=== PATIENT | female | born 1950 | race Caucasian/White ===

== ENCOUNTER 2016-09-23 18:57 | Inpatient (IN) | payer OTHER, MEDICAID ==
[~2016-09-23] VITALS: Ht 154.9 cm; Wt 82.0 kg
[~2016-09-23 18:57] MED LIST: COZ25 PO; ECO81 PO; LEXAPRO10 MG PO; LOT10; METOPROLOL TART25 M1 PO; NORCO1 TA2 PO; TEN25; ZOC20 PO
[2016-09-24] MEDS ORDERED: GOOD SENSE OMEP20 MG PO
[2016-09-24 01:09] VITALS: BP 116/64
[2016-09-24 03:45] LABS: CHOLESTEROL/HDL RATIO 4.3
[2016-09-24 05:46] LABS: microscopic required? NO
[2016-09-24 06:58] LABS: urine erythrocyte NEGATIVE (NEGATIVE)
[2016-09-24 07:03] LABS: AMPHETAMINE QUAL UR NONE DETECTED (NEG <=1000)
[2016-09-24 09:35] VITALS: BP 124/63
[2016-09-24 13:54] VITALS: BP 105/63; BP 150/59
[2016-09-24 17:46] VITALS: BP 101/52
[2016-09-24 21:55] VITALS: BP 108/49
[2016-09-25 05:29] VITALS: BP 111/65
[2016-09-25 08:00] LABS: CALCIUM 8.3 mg/dL (8.5-10.1); CARBON DIOXIDE 26.3 mmol/L (21-32); CHLORIDE SERUM 107 mmol/L (98-107); CREATININE SERUM 0.9 mg/dL (0.6-1.0); GFR1 > 60 mL/min; GLUCOSE SERUM 99 mg/dL (74-106); MAGNESIUM 2.1 mg/dL (1.8-2.4); PHOSPHOROUS 3.8 mg/dL (2.5-4.9); POTASSIUM SERUM 3.9 mmol/L (3.5-5.1); SODIUM SERUM 140 mmol/L (136-145)
[2016-09-25 08:55] VITALS: BP 137/74
[2016-09-25 09:18] LABS: BASOPHIL % 0.4 % (0-2); PLATELET COUNT 185 x10^3mcL (130-400)
[2016-09-25 09:23] LABS: RED CELL DISTRIBUTION WIDTH 14.7 % (11.5-14.5)
[2016-09-25 12:33] VITALS: BP 133/73
[2016-09-25 17:56] VITALS: BP 138/73
[2016-09-25 21:20] VITALS: BP 130/69
[2016-09-26 05:32] VITALS: BP 135/64
[2016-09-26 06:38] LABS: CALCIUM 8.5 mg/dL (8.5-10.1); CARBON DIOXIDE 27.1 mmol/L (21-32); CHLORIDE SERUM 106 mmol/L (98-107); CREATININE SERUM 0.8 mg/dL (0.6-1.0); GFR1 > 60 mL/min; GLUCOSE SERUM 99 mg/dL (74-106); POTASSIUM SERUM 4.3 mmol/L (3.5-5.1); SODIUM SERUM 141 mmol/L (136-145)
[2016-09-26 10:07] VITALS: BP 126/73
[2016-09-26 14:55] VITALS: BP 140/80
[2016-09-26 16:10] VITALS: BP 140/80
[2016-09-26 17:38] VITALS: BP 112/59
[2016-09-26] MEDS ORDERED: METOPROLOL SUCC25 M2 PO (17:43)
[2016-09-26] MEDS ORDERED: ECO81 PO (17:55)
[2016-09-26] MEDS ORDERED: LIPI10 PO (17:55)
== END 2016-09-26 19:36 | disposition home or self-care (01) | DRG 73 ==
LOC: ED 18:57 → DU 09-24 00:09
PROVIDERS: Family Medicine; ADMIT Family Medicine
DX: G90.9 Disorder of the autonomic nervous system, unspecified (principal); N17.0 Acute kidney failure with tubular necrosis; E43 Unspecified severe protein-calorie malnutrition; R00.1 Bradycardia, unspecified; R73.03 Prediabetes; E78.5 Hyperlipidemia, unspecified; E66.9 Obesity, unspecified; Z68.34 Body mass index [BMI] 34.0-34.9, adult; Z96.653 Presence of artificial knee joint, bilateral; Z79.82 Long term (current) use of aspirin; Z79.891 Long term (current) use of opiate analgesic
CPT/HCPCS: 82962; 83880; J7030; J8597; Q0092

== ENCOUNTER 2018-08-11 19:06 | Emergency (ER) | payer OTHER, MEDICAID ==
[~2018-08-11] VITALS: Ht 157.5 cm; Wt 81.3 kg
[~2018-08-11 19:06] MED LIST changes: +GOOD SENSE OMEP20 MG PO; +LIPI10 PO; +METOPROLOL SUCC25 M2 PO
[2018-08-11 19:12] VITALS: Ht 157.5 cm; Wt 81.3 kg
[2018-08-11 20:48] VITALS: BP 145/78
== END 2018-08-11 20:48 | disposition home or self-care (01) ==
LOC: ED 19:06
DX: S61.214A Laceration without foreign body of right ring finger without damage to nail, initial encounter (principal); S61.300A Unspecified open wound of right index finger with damage to nail, initial encounter; I10 Essential (primary) hypertension; Z90.49 Acquired absence of other specified parts of digestive tract; Z98.890 Other specified postprocedural states; Z88.8 Allergy status to other drugs, medicaments and biological substances; Z88.5 Allergy status to narcotic agent; W26.8XXA Contact with other sharp object(s), not elsewhere classified, initial encounter; Y93.89 Activity, other specified; Y92.89 Other specified places as the place of occurrence of the external cause; Y99.8 Other external cause status
CPT/HCPCS: 90715

== ENCOUNTER 2019-01-09 16:44 | Emergency (ER) | payer OTHER ==
[~2019-01-09] VITALS: Ht 152.4 cm; Wt 80.7 kg
[2019-01-09 16:53] VITALS: BP 151/88; Ht 152.4 cm; Wt 80.7 kg
== END 2019-01-09 19:51 | disposition home or self-care (01) ==
LOC: ED 16:44
DX: R51 Headache (principal); R20.2 Paresthesia of skin; H53.149 Visual discomfort, unspecified; I10 Essential (primary) hypertension; Z98.890 Other specified postprocedural states; Z88.8 Allergy status to other drugs, medicaments and biological substances; Z88.5 Allergy status to narcotic agent

== ENCOUNTER 2019-03-28 19:14 | Emergency (ER) | payer OTHER ==
[~2019-03-28] VITALS: Ht 152.4 cm; Wt 80.3 kg
[2019-03-28 19:28] VITALS: Ht 152.4 cm; Wt 80.3 kg
[2019-03-28 21:17] VITALS: BP 131/74
== END 2019-03-28 21:12 | disposition home or self-care (01) ==
LOC: ED 19:14
DX: M75.32 Calcific tendinitis of left shoulder (principal); I10 Essential (primary) hypertension; Z98.890 Other specified postprocedural states; Z88.1 Allergy status to other antibiotic agents; Z88.8 Allergy status to other drugs, medicaments and biological substances; Z88.5 Allergy status to narcotic agent
CPT/HCPCS: J1885; Q0092

== ENCOUNTER 2019-08-02 18:35 | Emergency (ER) | payer OTHER ==
[~2019-08-02] VITALS: Ht 157.5 cm; Wt 80.7 kg
[2019-08-02 18:54] VITALS: Ht 157.5 cm; Wt 80.7 kg
[2019-08-02 20:42] VITALS: BP 140/70
== END 2019-08-02 20:42 | disposition home or self-care (01) ==
LOC: ED 18:35
DX: M79.671 Pain in right foot (principal); M79.672 Pain in left foot; I10 Essential (primary) hypertension; Z98.890 Other specified postprocedural states; Z88.5 Allergy status to narcotic agent; Z88.8 Allergy status to other drugs, medicaments and biological substances